=== PATIENT | male | born 2000 | race Caucasian/White ===

== ENCOUNTER 2024-03-28 19:02 | Emergency (ER) | payer OTHER ==
--- NOTE | 2024-03-28 20:25 | ED ---
Skin/Abscess/FB HPI - General Source: patient, family, RN notes reviewed Mode of arrival: ambulatory Limitations: no limitations - History of Present Illness MD complaint: rash Onset/Timin -: days(s) <Chas Zuniga - Last Filed: 03/28/24 20:23> <Karli Ahumada - Last Filed: 03/29/24 13:41> - General Chief complaint: Skin/Abscess/Foreign Body Stated complaint: rash, MICHAEL - History of Present Illness Initial comments: Quick note: This is a 23-year-old male presenting with diffuse rash x 2 days. Patient states rash is burning with some difficulty breathing earlier today. 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 Endorses use of Benadryl with some relief. (Chas Zuniga) Patient is a 23-year-old male with no significant medical history presenting today for diffuse erythematous rash x 2 days. Patient states that he began using mineral salts to clean objects at work and 2 days ago began having a diffusely erythematous rash. It is at the top of his feet, up his legs, his arms and his upper portion of his chest. He wear shorts and a T-shirt at work. He trialed children's Benadryl earlier today without any change in his symptoms. The rash is not painful and it does not cause irritation. Denies any difficulty in breathing, chest pain, recent sick contacts, throat swelling, oral sores, cough, fevers, recent travel, new foods or detergents, hx allergies, nausea, vomiting, diarrhea, abdominal pain, new medications. He has not had any direct contact with the solutions he works with and has bathed since last working with the salts. (Karli Ahumada) - Related Data Allergies Allergy/AdvReac Type Severity Reaction Status Date / Time No Known Allergies Allergy Verified 03/28/24 19:12 Review of Systems ROS Other: All systems not noted in ROS Statement are negative. <Chas Zuniga - Last Filed: 03/28/24 20:23> ROS Other: All systems not noted in ROS Statement are negative. <Karli Ahumada - Last Filed: 03/29/24 13:41> ROS Statement: Those systems with pertinent positive or pertinent negative responses have been documented in the HPI. Past Medical History Past Medical History: No Reported History Past Surgical History: No Surgical Hx Reported Smoking Status: Never smoker <Chas Zuniga - Last Filed: 03/28/24 20:23> General Exam Limitations: no limitations <Chas Zuniga - Last Filed: 03/28/24 20:23> <Karli Ahumada - Last Filed: 03/29/24 13:41> - General Exam Comments Initial Comments: Visual Physical Exam Vital signs reviewed General: Well-appearing, nontoxic, no acute distress. Head: Normocephalic, atraumatic Eyes: PERRLA, EOMI ENT: Airway patent Chest: Nonlabored breathing Skin: Maculopapular rash covering BLE, upper chest. Normal skin tone Neuro: Alert and oriented 3 Musculoskeletal: No gross abnormalities (Chas Zuniga) PE: CONSTITUTIONAL: No apparent distress, well appearing SKIN: Warm, dry, no jaundice, hives or petechiae, diffuse erythamatous flat rash extending from the top of patient's feet to thighs, stopping at where the clothing line of his shorts end, similar erythema of the bilateral upper extremities and upper chest, 1 tiny blister on dorsal aspect of left wrist where patient states his watch was, redness spares the area of the ankle where the patient's socks were, no other vesicular lesions, no skin sloughing, rash is blanchable, nontender EYES: Pupils are equally round, extraocular movements intact without nystagmus, clear conjunctiva, non-icteric sclera HENT: Normocephalic, atraumatic, moist mucus membranes, oropharynx clear without exudates, no oropharyngeal lesions or exudates NECK: , Full range of motion, normal appearance PULMONARY: Clear to auscultation without wheezes, rhonchi, or rales, normal excursion, no accessory muscle use and no stridor CARDIOVASCULAR: Regular rate, rhythm, normal S1 and S2. No appreciated murmurs, rubs or gallops. Strong radial pulses with intact distal perfusion. No lower extremity edema GASTROINTESTINAL: Soft, active bowel sounds throughout, non-tender, non- distended, no palpable masses, no rebound or guarding. No hepatosplenomegaly MUSCULOSKELETAL: Extremities have no gross deformity, no edema, or swelling. No calf swelling NEUROLOGIC:_a/o x 3, GCS 15, normal mentation and speech. Moves all extremities x 4 without motor or sensory deficit PSYCHIATRIC:_normal mood and affect, thought process is clear and linear (Karli Ahumada) Course Vital Signs 03/28/24 03/28/24 19:09 23:07 Temperature 98.3 F 97.8 F Pulse Rate 77 56 L Respiratory 20 17 Rate Blood Pressure 152/81 124/78 O2 Sat by Pulse 98 99 Oximetry Medical Decision Making <Chas Zuniga - Last Filed: 03/28/24 20:23> <Karli Ahumada - Last Filed: 03/29/24 13:41> - Medical Decision Making I completed the quick note portion of this chart signed ALICIA Last (Chas Zuniga) Was pt. sent in by a medical professional or institution ([facility] Phillips, [employer]IL[employer]NAGEMENT [employer] NURSE, urgent care, hospital, or alf...) When possible be specific @ -No Did you speak to anyone other than the patient for history (EMS, parent, family, police, friend...)? What history was obtained from this source @ -No Did you review nursing and triage notes (agree or disagree)? Why? @ -I reviewed and agree with nursing and triage notes Were old charts reviewed (outside hosp., previous admission, EMS record, old EKG, old radiological studies, urgent care reports/EKG's, alf records)? Report findings @Medical records reviewed, no recent visits to the ER Differential Diagnosis (chest pain, altered mental status, abdominal pain women, abdominal pain men, vaginal bleeding, weakness, fever, dyspnea, syncope, headache, dizziness, GI bleed, back pain, seizure, CVA, palpatations, mental health, musculoskeletal)? @Differential diagnose remains broad however top considerations include allergic reaction, contact dermatitis 2/2 exposure to mineral salts, viral exanthem, this is not all inclusive list EKG interpreted by me (3pts min.). @ -As above X-rays interpreted by me (1pt min.). @ -None done CT interpreted by me (1pt min.). @ -None done U/S interpreted by me (1pt. min.). @ -None done What testing was considered but not performed or refused? (CT, X-rays, U/S, labs)? Why? @ -None What meds were considered but not given or refused? Why? @ -None Did you discuss the management of the patient with other professionals (professionals i.e. , BET[facility], [employer] MANAGEMENT [employer] NURSE, lab, RT, psych nurse, long term care social worker, court transcriber, teacher, corporate officer, casework supervisor)? Give summary @Case was discussed with poison control, recommend treating as a first-degree burn or sunburn with bacitracin or aloe vera, patient does not be need to be sent to a burn center can be treated similarly to a sunburn Was smoking cessation discussed for >3mins.? @ -No Was critical care preformed (if so, how long)? @ -No Were there social determinants of health that impacted care today? How? (Homelessness, low income, unemployed, alcoholism, drug addiction, transporta tion, low edu. Level, literacy, decrease access to med. care, custodial, rehab)? @ -No Was there de-escalation of care discussed even if they declined (Discuss DNR or withdrawal of care, Hospice)? @ -No What co-morbidities impacted this encounter? (DM, HTN, Smoking, COPD, CAD, Cancer, CVA, ARF, Chemo, Hep., AIDS, mental health diagnosis, sleep apnea, morbid obesity)? @ -None Was patient admitted / discharged? Hospital course, mention meds given and route, prescriptions, significant lab abnormalities, going to OR and other pertinent info. @ -discharged-this is a pleasant previously well 23-year-old male presenting with an erythematous rash in regions that were exposed to vapors from mineral salts. One tiny 0.5 cm x 2-3 mm blister on left wrist, otherwise no blistering lesions. Patient well-appearing, nontoxic, afebrile well-nourished and well- hydrated. Patient was given 125 Solu-Medrol by DORINDA that saw the patient in triage. I discussed patient's case with poison control and they state that if as long as patient was not exposed to any additional substances, can safely be discharged home. Patient does state that he goes between using acetone and the mineral salts, I called poison control back and discussed with [facility] poison control who states that this does not add any additional risk and patient can be treated with bacitracin and or aloe vera ointment like a sunburn or 1st degree burn. Patient does not require transfer to burn center or IV fluids if he is otherwise well appearing. Steroids unlikely to provide additional benefit. For this reason steroids will not be continued outpatient. Discussed this with patient and plan for discharge, symptomatic care and the importance of monitoring closely for worsening symptoms, failure of symptoms to improve and the importance of wearing protecting clothing when working with substances at his job. Agreeable and understanding with this. Discharged in stable condition Undiagnosed new problem with uncertain prognosis? @ -No Drug Therapy requiring intensive monitoring for toxicity (Heparin, Nitro, Insulin, Cardizem)? @ -No Were any procedures done? @ -No Diagnosis/symptom? @ -Contact dermatitis Acute, or Chronic, or Acute on Chronic? @ -Acute Uncomplicated (without systemic symptoms) or Complicated (systemic symptoms)? @ -uncomplicated Side effects of treatment? @ -No Exacerbation, Progression, or Severe Exacerbation? @ -No Poses a threat to life or bodily function? How? (Chest pain, [place], [place], pneumonia, PE, COPD, DKA, ARF, appy, cholecystitis, CVA, Diverticulitis, Homicidal, Suicidal, threat to staff... and all critical care pts) @ -No (Karli Ahumada) Disposition <Chas Zuniga - Last Filed: 03/28/24 20:23> Is patient prescribed a controlled substance at d/c from ED?: No <Karli Ahumada - Last Filed: 03/29/24 13:41> Clinical Impression: Contact dermatitis Disposition: HOME SELF-CARE Condition: Good Additional Instructions: Every disease is a spectrum and a small chance still exists that a serious condition could develop, for this reason, please monitor yourself closely for new, changing or worsening symptoms, symptoms that persist beyond 48 hours, should you develop any blistering lesions, shortness of breath, coughing up blood, fever, inability to tolerate/keep down fluids or your medications, inability to follow up with outpatient providers as instructed and should you experience these symptoms or should you have any further concerns for your wellbeing please return to the ED or call 911 immediately. Please use bacitracin or aloe vera ointment on your skin to help with irritation. 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 Please drink plenty of fluids PLEASE call your primary care physician as soon as possible to arrange / discuss plan for followup appointment. Appointment in the next 1-3 days is strongly encouraged if possible. PLEASE let us know here before you leave if there is anything further we can do to be of any assistance. Take care and feel Better! Referrals: None,Stated [Primary Care Provider] - 1-2 days
[2024-03-28] MEDS: methylPREDNISolone SOD SUCCI 125 MG/2 ML VIAL IM ONE (21:01)
[2024-03-28] MEDS: IBUPROFEN 600 MG TAB PO STA (22:14)
[2024-03-28 23:09] VITALS: BP 124/78; PULSE 56; RESP 17; TEMP 97.8
== END 2024-03-28 23:12 | disposition home or self-care (01) ==
LOC: EC 19:02
DX: L25.9 Unspecified contact dermatitis, unspecified cause (principal)
CPT/HCPCS: 99283; 96372; J2919